=== PATIENT | male | born 1970 | race Caucasian/White ===

== ENCOUNTER → 2017-02-19 | Outpatient (CLI) | payer OTHER ==
--- NOTE | 2017-02-19 16:54 | CR ---
EXAMINATION: Left foot HISTORY: Pain COMPARISON: None TECHNIQUE: 3 views FINDINGS/IMPRESSION: There is no acute osseous abnormality, dislocation, or fracture identified. Bon e mineralization and joint spaces are grossly preserved. There is a small Achilles insertional enthe sophyte.
== END ==
LOC: MW.CHFP 11:42
PROVIDERS: ATTEND Physician Assistant
DX: M79.672 Pain in left foot (principal); M77.8 Other enthesopathies, not elsewhere classified
CPT/HCPCS: 73630-26-LT; 73630-LT